=== PATIENT | male | born 1965 | race African-American/Black ===

== ENCOUNTER 2016-12-06 10:03 | Emergency (ER) | payer OTHER ==
[~2016-12-06] VITALS: Ht 182.9 cm; Wt 68.0 kg
[2016-12-06] MEDS ORDERED: SODIUM CHLORIDE 0.9% 1,000 ML IV ONE (10:39)
[2016-12-06] MEDS ORDERED: HYDROmorphone HCL 2 MG/ML VL IV ONE ×2 (10:45→12:15)
[2016-12-06 11:29] LABS: Basophils # (auto) 0.1 uL; Basophils % (auto) 0.5 % (0.0-2.0); DEFINITIVE VIEW TRANSMISSION; Eosinophils # (auto) 0.2 uL; Hematocrit 22.4 % (41.0-53.0); Hemoglobin 7.6 g/dL (13.5-17.5); Lymphocytes # (auto) 3.4 uL; Lymphocytes % (auto) 21.3 % (10.0-50.0); Mean Corpuscular Hemoglobin 36.6 pg (28.0-32.0); Mean Corpuscular Hgb Conc. 33.7 g/dL (32.0-36.0); Mean Corpuscular Volume 108.5 fL (80.0-100.0); Mean Platelet Volume 7.6 fL (7.4-10.4); Monocytes # (auto) 1.5 uL; Monocytes % (auto) 9.3 % (0.0-12.0); Neutrophils # (auto) 10.9 uL; Neutrophils % (auto) 67.9 % (37.0-80.0); Platelet Count (auto) 434 10^3/uL (140-450); White Blood Cell 16.1 10^3/uL (4.4-10.8)
[2016-12-06 11:32] LABS: Reticulocyte Count 11.59 % (0.5-1.5); SUSPECT VIEW TRANSMISSION
[2016-12-06 11:33] LABS: Red Cell Distribution Width 24.3 % (11.6-16.0)
[2016-12-06 11:36] LABS: Partial Thromboplastin Time 25.9 sec (22.64-33.71)
[2016-12-06 11:37] LABS: INR 1.3 (0.9-1.15)
[2016-12-06 11:48] LABS: Albumin 3.5 g/dL (3.4-5.0); BUN/Creatinine Ratio 17.9; Bilirubin, Total 4.8 mg/dL (0.2-1.0); Calcium 8.8 mg/dL (8.5-10.1); Magnesium 2.1 mg/dL (1.6-2.6); Potassium 3.9 mmol/L (3.5-5.1); Total Protein 7.3 g/dL (6.4-8.2)
[2016-12-06 13:43] LABS: Anisocytosis Moderate; Platelet Estimate Adequate
[2016-12-06 13:44] LABS: Macrocytosis Slight; Ovalocytes FEW; Sickle Cells FEW
[2016-12-06 15:04] VITALS: BP 120/61
== END 2016-12-06 15:54 | disposition home or self-care (01) ==
LOC: ER 10:03 → EDBD 10:03 → ER 15:54
DX: D57.01 Hb-SS disease with acute chest syndrome (principal); D63.8 Anemia in other chronic diseases classified elsewhere; Z86.73 Personal history of transient ischemic attack (TIA), and cerebral infarction without residual deficits; I48.91 Unspecified atrial fibrillation; M19.90 Unspecified osteoarthritis, unspecified site; I50.9 Heart failure, unspecified; I25.2 Old myocardial infarction
CPT/HCPCS: 36415; 71010; 80053; 83735; 85025; 85045; 85610; 85730; 94761; 96361; 96374; 96376; 99285; J1170; J7030

== ENCOUNTER 2019-06-24 11:20 | Emergency (ER) | payer MEDICAID, OTHER ==
[~2019-06-24] VITALS: Ht 188 cm; Wt 68.9 kg
[2019-06-24] MEDS ORDERED: SODIUM CHLORIDE 0.9% 1,000 ML IV ONE (11:58)
[2019-06-24] MEDS ORDERED: ONDANSETRON HCL 4 MG/2 ML VIAL IV ONE (12:00)
[2019-06-24] MEDS ORDERED: HYDROmorphone HCL 2 MG/ML VL IV ONE (12:00)
[2019-06-24 12:50] LABS: Red Blood Cells 1.17 10^6/uL (4.5-5.90)
[2019-06-24 12:54] LABS: Mean Corpuscular Hemoglobin 51.3 pg (28.0-32.0); Mean Corpuscular Hgb Conc. 35.4 g/dL (32.0-36.0); Platelet Count (auto) 229 10^3/uL (140-450); Red Cell Distribution Width 17.7 % (11.8-14.3); White Blood Cell 3.3 10^3/uL (4.4-10.8)
[2019-06-24 13:12] LABS: Albumin 3.4 g/dL (3.4-5.0); BUN/Creatinine Ratio 9.4; Calcium 8.5 mg/dL (8.5-10.1); Potassium 4.3 mmol/L (3.5-5.1)
[2019-06-24 13:15] LABS: Basophils % (manual) 0 (0.0-2.0); Bilirubin, Total 1.1 mg/dL (0.2-1.0); Blast Cells 0; Metamyelocytes % 0; Myelocytes % 0; Promyelocytes % 0; Reactive Lymphocytes 0; Total Protein 7.2 g/dL (6.4-8.2)
[2019-06-24 14:58] LABS: Band Neutrophils % (manual) 5; Eosinophils % (manual) 1 (0-7); Lymphocytes % (manual) 22 (10.0-50.0); Monocytes % (manual) 3 (0-12)
[2019-06-24 15:45] VITALS: BP 97/66
[2019-06-24 16:00] VITALS: BP 102/70
[2019-06-24 16:15] VITALS: BP 118/60
[2019-06-24 16:45] VITALS: BP 118/60
[2019-06-24 17:15] VITALS: BP 104/73
[2019-06-24 18:08] VITALS: BP 125/64
== END 2019-06-24 18:20 | disposition short-term general hospital (02) ==
LOC: ER 11:22
DX: D57.00 Hb-SS disease with crisis, unspecified (principal); I25.2 Old myocardial infarction; Z90.49 Acquired absence of other specified parts of digestive tract; Z86.73 Personal history of transient ischemic attack (TIA), and cerebral infarction without residual deficits; Z88.0 Allergy status to penicillin
CPT/HCPCS: 36415; 36430; 80053; 83735; 85007; 85027; 85045; 86850; 86900; 86901; 86920; 94761; 96374; 96375; 99285; J1170; J2405; J7030; P9016